=== PATIENT | female | born 1955 | race Caucasian/White ===

== ENCOUNTER 2017-02-20 11:30 | Emergency (ER) | payer OTHER ==
[~2017-02-20] VITALS: Wt 93.0 kg
[~2017-02-20 11:30] MED LIST: 'XANAX0.25 MG PO; ALAVERT10 M1 PO; ASPI-COR81 M1 PO; CRESTOR20 MG PO; METOPROLOL SUCC50 M1 PO; ZESTRIL,PRINIVI10 MG PO
[2017-02-20 11:40] VITALS: BP 121/54
[2017-02-20] MEDS ORDERED: VITAMIN D5000 UNIT PO (11:41)
[2017-02-20] MEDS ORDERED: LEVAQUIN750 M1 PO (11:54)
== END 2017-02-20 11:58 | disposition home or self-care (01) ==
LOC: ED 11:30
DX: J06.9 Acute upper respiratory infection, unspecified (principal); F17.200 Nicotine dependence, unspecified, uncomplicated; Z88.6 Allergy status to analgesic agent; Z79.899 Other long term (current) drug therapy; Z79.82 Long term (current) use of aspirin

== ENCOUNTER → 2017-05-23 | Day surgery (SDC) | payer OTHER ==
[~2017-05-23] VITALS: Ht 170.1 cm; Wt 104.8 kg
[~2017-05-23] MED LIST changes: +LEVAQUIN750 M1 PO; +VITAMIN D5000 UNIT PO
[2017-05-23 08:00] VITALS: BP 136/79
[2017-05-23 10:07] VITALS: BP 114/45
[2017-05-23 10:22] VITALS: BP 131/53
[2017-05-23 10:37] VITALS: BP 150/73
== END | disposition home or self-care (01) ==
LOC: SDC 05-22 12:30
DX: Z12.11 Encounter for screening for malignant neoplasm of colon (principal); K64.8 Other hemorrhoids; K57.30 Diverticulosis of large intestine without perforation or abscess without bleeding; K63.89 Other specified diseases of intestine; I10 Essential (primary) hypertension; Z88.8 Allergy status to other drugs, medicaments and biological substances; Z95.5 Presence of coronary angioplasty implant and graft; Z90.710 Acquired absence of both cervix and uterus; I25.10 Atherosclerotic heart disease of native coronary artery without angina pectoris; F17.210 Nicotine dependence, cigarettes, uncomplicated; Z82.49 Family history of ischemic heart disease and other diseases of the circulatory system

== ENCOUNTER → 2017-08-19 | Outpatient (CLI) | payer OTHER | END | disposition home or self-care (01) | LOC: MAMMO 13:42 | DX: Z12.31 Encounter for screening mammogram for malignant neoplasm of breast (principal) ==

== ENCOUNTER → 2017-11-14 | Outpatient (CLI) | payer OTHER | END | disposition home or self-care (01) | LOC: US 12:30 | DX: I73.9 Peripheral vascular disease, unspecified (principal) ==

== ENCOUNTER → 2017-11-25 | Outpatient (CLI) | payer OTHER | END | disposition home or self-care (01) | LOC: CARD 11-20 15:00 | DX: I05.9 Rheumatic mitral valve disease, unspecified (principal); I25.10 Atherosclerotic heart disease of native coronary artery without angina pectoris ==

== ENCOUNTER → 2019-02-25 | Outpatient (CLI) | payer MEDICARE | END | disposition home or self-care (01) | LOC: MAMMO 08:37 | DX: Z12.31 Encounter for screening mammogram for malignant neoplasm of breast (principal) ==

== ENCOUNTER 2019-07-25 12:38 | Inpatient (IN) | payer MEDICARE ==
[~2019-07-25] VITALS: Ht 167.6 cm; Wt 91.7 kg
[2019-07-25 12:39] VITALS: BP 155/85
[2019-07-25 13:51] VITALS: BP 178/82
--- NOTE | 2019-07-25 14:06 | NUR ---
PATIENT RERATES PAIN A 5 OR 6 AT THIS TIME POST MORPHINE IVP.
[2019-07-25 14:17] LABS: BASO % 0.4 % (0.0-1.0); EOS # 0.3 10*3/uL (0.0-0.4); EOS % 2.6 % (1.0-4.0); HEMATOCRIT 47.8 % (37.0-47.0); HEMOGLOBIN 15.3 g/dl (12.0-16.0); LYMPH # 2.6 10*3/uL (1.3-4.4); MEAN CORPUSCULAR HGB 29.1 pg (27.0-31.0); MEAN PLATELET VOLUME 11.4 fl (9.6-12.3); MONO # 0.7 10*3/uL (0.1-1.0); MONO % 7.4 % (3.0-9.0); NEUT # 6.4 10*3/uL (2.3-7.9); NEUT % 63.4 % (47.0-73.0); PLATELET COUNT AUTOMATED 241 10*3/uL (130-400); RED BLOOD COUNT 5.25 10*6/uL (4.10-5.10); RED CELL DISTRI WIDTH 13.7 % (0-14.5); WHITE BLOOD COUNT 10.1 10*3/uL (4.8-10.8)
[2019-07-25 14:41] LABS: ALKALINE PHOSPHATASE 67 U/L (45-117); BUN 9 mg/dl (7-24); CHLORIDE 110 mmol/L (98-107); CREATININE 0.57 mg/dL (0.55-1.02); POTASSIUM 3.8 mmol/L (3.5-5.1); SGOT/AST 18 IU/L (3-35); SGPT/ALT 27 U/L (12-78); SODIUM 143 mmol/L (136-145); TOTAL PROTEIN 7.4 gm/dL (6.4-8.2)
[2019-07-25 16:51] VITALS: BP 151/67
[2019-07-25 18:15] VITALS: BP 162/84
[2019-07-25] MEDS ORDERED: LIPITOR40 MG PO (18:15)
[2019-07-25] MEDS ORDERED: FISH OIL CONC1000 M2 PO (18:18)
[2019-07-25 20:00] VITALS: BP 145/70
--- NOTE | 2019-07-25 23:59 | NUR ---
MORPHINE GIVEN PER ORDER FOR RIGHT WRIST CELLULITIS PAIN RATED "8" PER PT. SEE OCT.
[2019-07-26] VITALS: BP 139/71
--- NOTE | 2019-07-26 02:12 | NUR ---
24 HR chart check completed.
--- NOTE | 2019-07-26 06:02 | NUR ---
MORPHINE GIVEN PER ORDER FOR RIGHT WRIST PER PATIENT RATED "8" SEE MAR
--- NOTE | 2019-07-26 07:00 | NUR ---
MORPHIN EFFECTIVE FOR PAIN PER PT.
[2019-07-26 07:40] LABS: BASO % 0.5 % (0.0-1.0); EOS # 0.2 10*3/uL (0.0-0.4); EOS % 3.2 % (1.0-4.0); HEMATOCRIT 44.9 % (37.0-47.0); HEMOGLOBIN 14.4 g/dl (12.0-16.0); LYMPH # 1.1 10*3/uL (1.3-4.4); LYMPH % 16.9 % (27.0-41.0); MEAN CORPUSCULAR HGB 29.5 pg (27.0-31.0); MEAN CORPUSCULAR HGB CONC 32.1 g/dl (33.0-37.0); MEAN PLATELET VOLUME 11.1 fl (9.6-12.3); MONO # 0.5 10*3/uL (0.1-1.0); MONO % 7.7 % (3.0-9.0); NEUT # 4.8 10*3/uL (2.3-7.9); NEUT % 71.5 % (47.0-73.0); PLATELET COUNT AUTOMATED 211 10*3/uL (130-400); RED BLOOD COUNT 4.88 10*6/uL (4.10-5.10); RED CELL DISTRI WIDTH 13.7 % (0-14.5); WHITE BLOOD COUNT 6.6 10*3/uL (4.8-10.8)
--- NOTE | 2019-07-26 07:43 | NUR ---
SPOKE WITH DR RAMIREZ'S OFFICE. CONSULT CONFIRMED. CONTINUE TO MONITOR THE PT.
[2019-07-26 07:51] LABS: ACT PARTIAL THROMBO TIME 27.9 SECONDS (20.0-32.1)
[2019-07-26 07:59] LABS: ALBUMIN 2.7 gm/dl (3.1-4.5); BUN 8 mg/dl (7-24); CHLORIDE 109 mmol/L (98-107); CHOLESTEROL 138 mg/dL (<200); CREATININE 0.56 mg/dL (0.55-1.02); FREE T4 1.18 ng/dl (0.76-1.46); PHOSPHOROUS 3.6 mg/dL (2.5-4.9); POTASSIUM 3.9 mmol/L (3.5-5.1); SGOT/AST 151 IU/L (3-35); SGPT/ALT 162 U/L (12-78); SODIUM 141 mmol/L (136-145); TRIGLYCERIDES 104 mg/dl (<150); VLDL CHOLESTEROL 21 mg/dL (6-40)
[2019-07-26 08:00] VITALS: BP 138/64
[2019-07-26 08:03] LABS: ALKALINE PHOSPHATASE 88 U/L (45-117); HDL CHOLESTEROL 38 mg/dl (40-60); LDL CHOLESTEROL 79 mg/dL (9-159); TOTAL PROTEIN 6.5 gm/dL (6.4-8.2)
--- NOTE | 2019-07-26 08:04 | NUR ---
PRN NORCO GIVEN FOR COMPLAINTS OF RIGHT WRIST PAIN RATED A 7/10. WILL MONITOR FOR EFFECTIVENESS.
--- NOTE | 2019-07-26 08:09 | NUR ---
SPOKE WITH DR MATUTE ABOUT PTS REQUEST FOR A REGULAR DIET. ORDERS RECEIVED. CONTINUE TO MONITOR THE PT.
[2019-07-26 08:56] LABS: VITAMIN D, 25-HYDROXY 21.7 ng/mL (30-100)
--- NOTE | 2019-07-26 09:00 | NUR ---
Speed Reading Teacher in to talk to patient. Patient states lives at home with her . There are 3-4 steps in the home. Physician: Dr. Dorothea Young Pharmacy: [facility] Home health services: none Patient's level of ADLs: INDEPENDENT Patient has working utilities: yes DME: none Follow-up physician's appointment after d/c: will be made by the hospitalist nurse director upon discharge Does patient want to access PORTAL?: no Discharge plan discussed with patient. She lives at home with her . She is independent in her ADLs and ambulation. Discussed home health care services and she denies any home needs at this time. When medically stable she will be discharged to home. Her will provide transportation on discharge. She is on vancomycin and zosyn for her cellulitis. Dr. Martinez following. ALVA ISSA
--- NOTE | 2019-07-26 09:00 | NUR ---
RE-EVALUATED AT THIS TIME. PRN NORCO EFFECTIVE MINIMALLY. CONTINUE TO MONITOR THE PT.
[2019-07-26 12:00] VITALS: BP 143/62
--- NOTE | 2019-07-26 13:36 | NUR ---
PRN NORCO GIVEN FOR COMPLAINTS OF R WRIST PAIN RATED A 7/10. WILL MONITOR FOR EFFECTIVENSS.
--- NOTE | 2019-07-26 13:42 | NUR ---
SPOKE WITH DR MATUTE ABOUT PT'S MED REC. MED REC IS COMPLETE. WILL BE LOOKED AT PER DR MATUTE AND CONTINUED NEEDED. CONTINUE TO MONITOR
--- NOTE | 2019-07-26 14:30 | NUR ---
RE-EVALUATED. PT STATES NORCO IS EFFECTIVE. CONTINUE TO MONITOR THE PT.
[2019-07-26 16:00] VITALS: BP 145/65
--- NOTE | 2019-07-26 19:56 | NUR ---
MEDICATED WITH NORCO FOR C/O RIGHT ARM/HAND PAIN.
[2019-07-26 20:00] VITALS: BP 159/58
--- NOTE | 2019-07-26 20:00 | NUR ---
IV NOT PATENT; WILL RESTART.
--- NOTE | 2019-07-26 20:05 | NUR ---
IV started left forearm with #22 protective cath after 2 attempts. Site prepped with Chloroprep. Sterile dressing applied. Patient tolerated procedure well. IV infusing at cc/hr. GABINO CORDERO
--- NOTE | 2019-07-26 22:30 | NUR ---
RESTING IN BED; VOICES NO FURTHER C/O PAIN AT THIS TIME. WILL CONTINUE TO MONITOR. CALL LIGHT WITHIN REACH.
[2019-07-27] VITALS: BP 127/43
--- NOTE | 2019-07-27 02:00 | NUR ---
AROUSES EASILY UPON ENTERING ROOM TO GIVE IV ANTIBIOTIC. PT. VOICES NO C/O AT THIS TIME; DOES NOT WANT ANY PAIN MEDICATION. CALL LIGHT WITHIN REACH.
--- NOTE | 2019-07-27 06:30 | NUR ---
RESTING IN BED WITH EYES CLOSED. CALL LIGHT WITHIN REACH.
[2019-07-27 07:12] LABS: BASO % 0.4 % (0.0-1.0); EOS # 0.3 10*3/uL (0.0-0.4); EOS % 4.3 % (1.0-4.0); HEMATOCRIT 45.1 % (37.0-47.0); HEMOGLOBIN 14.5 g/dl (12.0-16.0); LYMPH % 27.2 % (27.0-41.0); MEAN CELL VOLUME 90.7 fl (81.0-99.0); MEAN CORPUSCULAR HGB 29.2 pg (27.0-31.0); MEAN CORPUSCULAR HGB CONC 32.2 g/dl (33.0-37.0); MEAN PLATELET VOLUME 10.5 fl (9.6-12.3); MONO # 0.6 10*3/uL (0.1-1.0); MONO % 7.6 % (3.0-9.0); NEUT # 4.4 10*3/uL (2.3-7.9); NEUT % 60.2 % (47.0-73.0); PLATELET COUNT AUTOMATED 217 10*3/uL (130-400); RED BLOOD COUNT 4.97 10*6/uL (4.10-5.10); RED CELL DISTRI WIDTH 13.6 % (0-14.5); WHITE BLOOD COUNT 7.3 10*3/uL (4.8-10.8)
[2019-07-27 07:18] LABS: BUN 7 mg/dl (7-24); CHLORIDE 113 mmol/L (98-107); CREATININE 0.58 mg/dL (0.55-1.02); POTASSIUM 4.1 mmol/L (3.5-5.1); SODIUM 144 mmol/L (136-145)
[2019-07-27 08:00] VITALS: BP 170/78
--- NOTE | 2019-07-27 09:00 | NUR ---
Dyslexia Teacher in to see patient. No new needs or request at this time. She denies any home needs. When medically stable she will be discharged to home. She is on IV Vancomycin and Zosyn for cellulitis, and Dr. Martinez on consult.
--- NOTE | 2019-07-27 10:16 | NUR ---
IV WAS REMOVED IN LEFT FOREARM DUE TO INFILTRATION. NEW IV WAS PLACED IN RAC.
--- NOTE | 2019-07-27 11:04 | NUR ---
24 HR chart check completed.
[2019-07-27 12:00] VITALS: BP 155/72
[2019-07-27] MEDS ORDERED: DOXYCYCLINE100 M3 PO (13:03)
--- NOTE | 2019-07-27 13:46 | NUR ---
Discharge instructions reviewed with patient/family. Patient receptive and verbalizes understanding. Follow-up care arranged. Written instructions given to patient/family. IV WAS REMOVED. SMOKING CESSATION PAPERS WERE GIVEN TO PATIENT. PT WAS NON-MONITORED. ALL QUESTIONS HAVE BEEN ANSWERED AT THIS TIME. GLORIA MCLEAN
== END 2019-07-27 13:46 | disposition home or self-care (01) | DRG 602 ==
LOC: ED 12:38 → EDHOLD 16:50 → 5E 16:50
PROVIDERS: Hospitalist; Internal Medicine; Physician Assistant; ADMIT Internal Medicine
DX: L03.113 Cellulitis of right upper limb (principal); E43 Unspecified severe protein-calorie malnutrition; R70.0 Elevated erythrocyte sedimentation rate; R73.9 Hyperglycemia, unspecified; R74.0 Nonspecific elevation of levels of transaminase and lactic acid dehydrogenase [LDH]; E87.8 Other disorders of electrolyte and fluid balance, not elsewhere classified; F17.210 Nicotine dependence, cigarettes, uncomplicated; I25.10 Atherosclerotic heart disease of native coronary artery without angina pectoris; I73.9 Peripheral vascular disease, unspecified; I10 Essential (primary) hypertension; E78.2 Mixed hyperlipidemia; Z88.5 Allergy status to narcotic agent; Z95.5 Presence of coronary angioplasty implant and graft; Z90.710 Acquired absence of both cervix and uterus; Z82.3 Family history of stroke; Z82.49 Family history of ischemic heart disease and other diseases of the circulatory system; Z90.49 Acquired absence of other specified parts of digestive tract; Z79.82 Long term (current) use of aspirin; Z79.899 Other long term (current) drug therapy; Z71.6 Tobacco abuse counseling; Z68.32 Body mass index [BMI] 32.0-32.9, adult

== ENCOUNTER → 2020-02-28 | Outpatient (CLI) | payer MEDICARE ==
[~2020-02-28] MED LIST changes: +DOXYCYCLINE100 M3 PO; +FISH OIL CONC1000 M2 PO; +LIPITOR40 MG PO
== END | disposition home or self-care (01) ==
LOC: MAMMO 10:21
DX: Z12.31 Encounter for screening mammogram for malignant neoplasm of breast (principal)

== ENCOUNTER → 2021-02-28 | Outpatient (CLI) | payer MEDICARE | END | disposition home or self-care (01) | LOC: MAMMO 14:00 | PROVIDERS: ATTEND Physician Assistant | DX: Z12.31 Encounter for screening mammogram for malignant neoplasm of breast (principal) ==

== ENCOUNTER → 2022-03-20 | Outpatient (CLI) | payer MEDICARE | LOC: MAMMO 08:30 | PROVIDERS: ATTEND Physician Assistant | DX: Z12.31 Encounter for screening mammogram for malignant neoplasm of breast (principal); N63.21 Unspecified lump in the left breast, upper outer quadrant ==

== ENCOUNTER → 2023-02-07 | Outpatient (CLI) | payer MEDICARE ==
[~2023-02-07] MED LIST changes: +CILOSTAZOL100 MG PO; +PROVENTIL HFA6.7 GM INH
== END ==
LOC: CARD 01:03
PROVIDERS: ATTEND Internal Medicine Cardiovascular Disease
DX: I11.0 Hypertensive heart disease with heart failure (principal); I50.30 Unspecified diastolic (congestive) heart failure; I73.9 Peripheral vascular disease, unspecified; R07.9 Chest pain, unspecified